=== PATIENT | male | born 2005 | race Caucasian/White ===

== ENCOUNTER 2024-05-31 10:46 | Emergency (ER) | payer OTHER, SELFPAY ==
--- NOTE | ~2024-05-31 | XR_ITS ---
EXAMINATION: XR chest 2V 05/31/2024 12:03 INDICATION: Increased heart rate PROCEDURE: 2 view chest COMPARISON: No prior studies for comparison. FINDINGS: The lungs are clear. The cardiomediastinal silhouette is within normal limits. There are no pleural effusions. There is no pneumothorax suspected. IMPRESSION: 1: NO ACUTE CARDIOPULMONARY DISEASE. Reviewed, dictated and finalized at location B. OGICAL MANAGER
--- NOTE | 2024-05-31 10:48 | ECG_ITS ---
Test Date: 2024-05-31 11:08:14 Measurements Intervals Reading Rate: 83 P: 68 OH: 140 QRS: 89 QRSD: 98 T: 44 QT: 377 QTc: 443 Interpretive Statements SINUS RHYTHM WITH SINUS ARRHYTHMIA No previous ECG available for comparison Electronically Signed On 05-31-2024 12:58:39 [employer] by Shira Diaz M.D.
[2024-05-31 10:50] VITALS: BP 117/72; PULSE 90; RESP 16; TEMP 36.4; O2SAT 100
[2024-05-31 11:43] LABS: Basophils Absolute Auto 0.1 K/mm3 (0.0-0.1); Basophils Percent Auto 0.9 % (0.2-1.2); Eosinophils Absolute Auto 0.2 K/mm3 (0-0.3); Eosinophils Percent Auto 4.3 % (0-4.4); Hematocrit 44.5 % (42.0-52.0); Hemoglobin 14.7 g/dL (14.0-18.0); Immature Granulocyte Absolute 0.02 K/mm3 (0.00-0.031); Immature Granulocyte Percent A 0.4 % (0-0.5); Lymphocytes Absolute Auto 1.71 K/mm3 (0.9-3.2); Lymphocytes Percent Auto 32.1 % (18.3-44.2); Mean Corpuscular Hemoglobin 29.9 pg (26-34); Mean Corpuscular Volume 90.6 fl (80-100); Monocytes Absolute Auto 0.7 K/mm3 (0.1-0.6); Monocytes Percent Auto 12.2 % (2.6-8.5); Neutrophils Absolute Auto 2.7 K/mm3 (1.3-6.7); Neutrophils Percent Auto 50.1 % (45.5-73.1); Platelet Count Result 210 k/mm3 (150-375); Red Blood Count 4.91 M/mm3 (4.6-6.20); Red Cell Distribution Width 12.8 % (11.5-14.5); White Blood Count 5.3 K/mm3 (4.5-10.0)
[2024-05-31 11:53] LABS: INR 1.1; Prothrombin Time 14.3 Seconds (11.1-14.7)
[2024-05-31 11:54] LABS: Partial Thromboplastin Time 29.2 Seconds (22.3-36.8)
[2024-05-31 11:55] LABS: Alanine Aminotransferase 20 U/L (6-50); Albumin Level 4.9 g/dL (3.5-5.1); Alkaline Phosphatase 109 U/L (38-126); Anion Gap 6 mmol/L (4-12); Aspartate Amino Transferase 34 U/L (17-59); Bilirubin,Total 0.7 mg/dL (0.2-1.3); Blood Urea Nitrogen 19 mg/dL (9-20); Calcium 9.5 mg/dL (8.4-10.2); Carbon Dioxide 29 mmol/L (22-30); Chloride 107 mmol/L (98-107); Estimated CRCL calculation 94 ml/min; Estimated Glomerular Filt Rate > 60; Glucose 87 mg/dL (65-110); Lipase 59 U/L (23-300); Magnesium 2.1 mg/dL (1.6-2.3); Potassium 4.4 mmol/L (3.4-5.0); Sodium 142 mmol/L (137-145)
[2024-05-31 12:07] LABS: Troponin I < 0.012 ng/mL (0.000-0.034)
[2024-05-31 12:11] VITALS: PULSE 77
--- NOTE | 2024-05-31 12:15 | ED_ITS ---
HPI - Arrhythmia/Palpitations General Chief Complaint: Arrhythmia/Palpitations Stated Complaint: went to , palpitations Time Seen by Provider: 05/31/24 12:00 History of Present Illness HPI narrative: 19 year Old male presenting with palpitations. States that for the last 8 months or so he has had episodes of palpitations. States that it feels like his heart is bounding out of his chest and like there are some extra beats. He has brought this up to his mom who recommended that the next time it happens he goes to get checked out. He went to an urgent care who told him he was in AFib and to come to the ER. Related Data Allergies Allergy/AdvReac Type Severity Reaction Status Date / Time No Known Allergies Allergy Verified 05/31/24 11:04 Review of Systems Review of Systems: All systems reviewed & are unremarkable except as noted in HPI and below Exam Narrative: GENERAL: Well-appearing, In no acute distress, pleasant cooperative HEAD: Normocephalic, atraumatic. EYES: PERRLA and EOMI. ENT: grossly unremarkable NECK: Supple. CHEST: No respiratory distress. HEART: Regular rate and rhythm ABDOMEN: Soft, nontender, nondistended EXTREMITIES: Normal range of motion SKIN: Warm, dry, no rash. NEURO: Alert and oriented x3. PSYCH: Normal mood and affect. Course Vital Signs Vital signs: Vital Signs Temperature 97.5 F L 05/31/24 10:50 Pulse Rate 90 05/31/24 10:50 Respiratory Rate 16 05/31/24 10:50 Blood Pressure 117/72 05/31/24 10:50 Pulse Oximetry 100 05/31/24 10:50 Oxygen Delivery Room Air 05/31/24 10:50 Temperature 98.1 F 05/31/24 12:42 Pulse Rate 64 05/31/24 12:42 Respiratory Rate 15 05/31/24 12:42 Blood Pressure 107/59 L 05/31/24 12:42 Pulse Oximetry 100 05/31/24 12:42 Oxygen Delivery Room Air 05/31/24 10:50 MDM - Arrhythmia/Palpitations MDM Narrative Medical decision making narrative: 19-year-old male presenting with palpitations. Vital signs are within normal limits. Exam is unremarkable. EKG per my interpretation shows normal sinus rhythm with a sinus arrhythmia, no ST elevations or depressions. He has been in our department for several hours and he has remained in sinus on the monitor. His blood work is unremarkable. Electrolytes are normal. Troponin is undetectable. Chest x-ray without acute abnormalities. Further discussion with the patient and his girlfriend, sounds like he drinks large amounts of caffeine on a regular basis. Discussed that the palpitations may related to the sinus arrhythmia were seeing into decrease or eliminate caffeine. Discussed appropriate supportive care. Patient is in the area as a student and lives in the [facility]. States that he has a family medicine doctor up there and he will follow-up closely on his break that is coming up this month. He may b enefit from a Holter monitor. Appropriate return precautions given. Discharged in stable condition. Differential Diagnosis Differential diagnosis: Likely palpitations, anxiety, sinus tachycardia, artial fibrillation and artial flutter Medical Records Attestation: I reviewed the patient's medical records. Lab Data Attestation: I reviewed the patient's lab results. 05/31/24 11:36 05/31/24 11:36 Labs: Lab Results 05/31/24 Range/Units 11:36 WBC 5.3 (4.5-10.0) K/mm3 RBC 4.91 (4.6-6.20) M/mm3 Hgb 14.7 (14.0-18.0) g/dL Hct 44.5 (42.0-52.0) % MCV 90.6 (80-100) fl MCH 29.9 (26-34) pg MCHC 33.0 (32-36) g/dl RDW 12.8 (11.5-14.5) % Plt Count 210 (150-375) k/mm3 MPV 11.0 H (7.4-10.4) fl Immature Gran % (Auto) 0.4 (0-0.5) % Neut % (Auto) 50.1 (45.5-73.1) % Lymph % (Auto) 32.1 (18.3-44.2) % [place] % (Auto) 12.2 H (2.6-8.5) % Eos % (Auto) 4.3 (0-4.4) % Baso % (Auto) 0.9 (0.2-1.2) % Lymph # (Auto) 1.71 (0.9-3.2) K/mm3 [place] # (Auto) 0.7 H (0.1-0.6) K/mm3 Eos # (Auto) 0.2 (0-0.3) K/mm3 Baso # (Auto) 0.1 (0.0-0.1) K/mm3 Abs Immat Gran (auto) 0.02 (0.00-0.031) K/mm3 Absolute Neuts (auto) 2.7 (1.3-6.7) K/mm3 Absolute Nucleated RBC 0.000 (0.0-0.012) K/mm3 Nucleated RBC % 0.0 (0.0-0.2) % PT 14.3 (11.1-14.7) Seconds INR 1.1 APTT 29.2 (22.3-36.8) Seconds Sodium 142 (137-145) mmol/L Potassium 4.4 (3.4-5.0) mmol/L Chloride 107 (98-107) mmol/L Carbon Dioxide 29 (22-30) mmol/L Anion Gap 6 (4-12) mmol/L BUN 19 (9-20) mg/dL Creatinine 1.20 (0.7-1.3) mg/dL Estim Creat Clear Calc 94 ml/min Estimated GFR > 60 (59 - ) Glucose 87 (65-110) mg/dL Calcium 9.5 (8.4-10.2) mg/dL Magnesium 2.1 (1.6-2.3) mg/dL Total Bilirubin 0.7 (0.2-1.3) mg/dL AST 34 (17-59) U/L ALT 20 (6-50) U/L Alkaline Phosphatase 109 (38-126) U/L Troponin I < 0.012 (0.000-0.034) ng/mL Total Protein 8.0 (6.3-8.2) g/dL Albumin 4.9 (3.5-5.1) g/dL Lipase 59 (23-300) U/L TSH (Reflex) 1.130 (0.465-4.68) uIU/mL Imaging Data Radiologist's impression: ITS Impressions Chest X-Ray 05/31/24 12:22 IMPRESSION: 1: NO ACUTE CARDIOPULMONARY DISEASE. Critical Care Time Critical Care Time Critical Care Time: No Discharge Plan Discharge Clinical Impression: Palpitations, Sinus arrhythmia seen on electrocardiogram Patient Disposition: Home, Self-Care Condition: Stable Instructions: Antibiotic Form, Heart Palpitations (DC) Additional Instructions: Your EKG today shows a sinus arrhythmia which is an extra beat here and there but we do not see evidence of any dangerous changes in your heart rate. Your blood work and chest x-ray are normal. Please try to abstain from caffeine and drink plenty of hydrating fluids. Follow-up closely with your primary care doctor to discuss your symptoms. You may benefit from a Holter monitor. If your symptoms worsen or other concerning symptoms arise, please return to the ER. Follow-up/Referrals: UNKNOWN,DOCTOR [Primary Care Provider] -
[2024-05-31 12:16] VITALS: BP 114/57; PULSE 65; RESP 14; O2SAT 98
[2024-05-31 12:42] VITALS: BP 107/59; PULSE 64; RESP 15; TEMP 36.7; O2SAT 100
== END 2024-05-31 12:48 | disposition home or self-care (01) ==
PROVIDERS: Physician Assistant; Student in an Organized Health Care Education/Training Program; Emergency Provider Emergency Medicine
DX: R00.2 Palpitations (principal); I49.8 Other specified cardiac arrhythmias
CPT/HCPCS: 36415; 71046; 80053; 83690; 83735; 84443; 84484; 85025; 85610; 85730; 93005; 99284